=== PATIENT | female | born 1990 | race Caucasian/White ===

== ENCOUNTER 2018-01-10 06:28 | Inpatient (IN) | payer MEDICAID ==
[2018-01-10] MEDS: AMPICILLIN 1 GM/NS (PMX) 50 ML IV ×3 (01:00→21:15)
[2018-01-10] MEDS ORDERED: LIDOCAINE 1% (MPF) 30 ML INJ INJ (10:30)
[2018-01-10] MEDS ORDERED: OXYTOCIN 30 UNITS/LR 500 ML IV (10:30)
[2018-01-10] MEDS ORDERED: CARBOPROST 250 MCG INJ IM (10:30)
[2018-01-10] MEDS ORDERED: BUTORPHANOL 2 MG INJ IV (10:30)
[2018-01-10] MEDS ORDERED: IBUPROFEN 600 MG TAB PO (10:30)
[2018-01-10] MEDS: LACTATED RINGER'S 1,000 ML IV* ×4 (10:52→21:01)
[2018-01-10 10:55] LABS: ADD MAN DIFF? NO
[2018-01-10 10:57] LABS: BASOPHILS % 0.2 % (0.0-2.0); EOSINOPHILS # 0.4 10^3/ul (0.0-0.5); EOSINOPHILS % 3.6 % (0.0-7.0); HEMOGLOBIN 11.3 g/dl (12.0-16.0); LYMPHOCYTES # 1.7 10^3/ul (0.8-2.9); LYMPHOCYTES % 15.5 % (15.0-51.0); MEAN CORPUSCULAR HEMOGLOBIN 25.6 pg (29.0-33.0); MEAN CORPUSCULAR HGB CONC 32.3 g/dl (32.0-37.0); MEAN CORPUSCULAR VOLUME 79.2 fl (82.0-101.0); MONOCYTE # 0.4 10^3/ul (0.3-0.9); MONOCYTES % 3.9 % (0.0-11.0); NEUTROPHIL # 8.6 10^3/ul (1.6-7.5); NEUTROPHILS % 76.4 % (39.0-77.0); PLATELET COUNT 173 10^3/UL (140-415); RED BLOOD COUNT 4.42 10^6/ul (4.20-5.40); RED CELL DISTRIBUTION WIDTH 13.9 % (11.5-14.5)
[2018-01-10 10:57] LABS: WHITE BLOOD COUNT 11.2 10^3/ul (4.8-10.8)
[2018-01-10 12:02] LABS: HEPATITIS B SURFACE ANTIGEN NEGATIVE (NEGATIVE)
[2018-01-10 12:16] LABS: PARTIAL THROMBOPLASTIN TIME 29.8 Sec (25.0-35.0); PROTIME 12.2 Sec (11.9-14.9)
[2018-01-10] MEDS ORDERED: FENTAnyl 2MCG/ML-ROPIV 0.2% 100 ML (12:29)
[2018-01-10 12:46] LABS: HIV 1&2 ANTIBODY NEGATIVE (NEGATIVE)
[2018-01-10] MEDS: AMPICILLIN 2 GM/NS (PMX) 100 ML IV (12:47)
[2018-01-10 15:15] LABS: RAPID PLASMA REAGIN NONREACTIVE (NR)
[2018-01-10] MEDS: DEXTROSE 5%-LR 1,000 ML IV (15:32)
[2018-01-10] MEDS ORDERED: NALOXONE (0.4 MG/ML) INJ IV (16:00)
[2018-01-10] MEDS ORDERED: HYDROmorphONE 0.5 MG/0.5 ML SYG IV ×2 (16:00)
[2018-01-10] MEDS ORDERED: ONDANSETRON 4 MG INJ IV (16:00)
[2018-01-10] MEDS ORDERED: KETOROLAC 30 MG INJ IV (16:00)
[2018-01-10] MEDS ORDERED: DIPHENHYDRAMINE 50 MG INJ IV (16:00)
[2018-01-10] MEDS: OXYTOCIN 30 UNITS/LR 500 ML IV (20:20)
[2018-01-10] MEDS: FENTAnyl 2MCG/ML-ROPIV 0.2% 100 ML BAG EPI (21:24)
[2018-01-11] MEDS: AMPICILLIN 1 GM/NS (PMX) 50 ML IV ×2 (01:16→05:13)
[2018-01-11] MEDS: DEXTROSE 5%-LR 1,000 ML IV ×3 (04:17→15:35)
[2018-01-11] MEDS: FENTAnyl 2MCG/ML-ROPIV 0.2% 100 ML BAG EPI ×2 (06:21→15:29)
[2018-01-11] MEDS: MINERAL OIL 30ML CUP PO ×2 (07:30→19:05)
[2018-01-11] MEDS ORDERED: ZOLPIDEM 5 MG TAB PO ×2 (12:00→23:00)
[2018-01-11] MEDS ORDERED: ONDANSETRON 4 MG INJ IV (12:00)
[2018-01-11] MEDS ORDERED: NALOXONE (0.4 MG/ML) INJ IV (12:00)
[2018-01-11] MEDS ORDERED: HYDROmorphONE 0.5 MG/0.5 ML SYG IV ×2 (12:00)
[2018-01-11] MEDS ORDERED: DIPHENHYDRAMINE 50 MG INJ IV (12:00)
[2018-01-11] MEDS ORDERED: KETOROLAC 30 MG INJ IV (12:00)
[2018-01-11] MEDS: LACTATED RINGER'S 1,000 ML IV* (12:03)
[2018-01-11] MEDS: OXYTOCIN 30 UNITS/LR 500 ML IV ×3 (20:24→21:37)
[2018-01-11] MEDS: METHYLERGONOVINE 0.2 MG INJ IM (20:36)
[2018-01-11] MEDS: MISOPROSTOL 200 MCG TAB PR (20:48)
[2018-01-11] MEDS ORDERED: OXYCODONE/ASPIRIN (4.88/325) TAB PO ×2 (23:00)
[2018-01-11] MEDS ORDERED: MISOPROSTOL 200 MCG TAB PR (23:00)
[2018-01-11] MEDS ORDERED: METHYLERGONOVINE 0.2 MG INJ IM (23:00)
[2018-01-11] MEDS ORDERED: OXYTOCIN 30 UNITS/LR 500 ML IV (23:00)
[2018-01-11] MEDS ORDERED: CARBOPROST 250 MCG INJ IM (23:00)
[2018-01-12] MEDS: IBUPROFEN 600 MG TAB PO ×4 (00:49→18:20)
[2018-01-12] MEDS: WITCH HAZEL/GLYCERIN PAD PR (00:49)
[2018-01-12] MEDS: BENZOCAINE 20% 56 ML SPRAY TOP (00:49)
[2018-01-12] MEDS: LANOLIN 7 GM TUBE TOP (00:50)
[2018-01-12 09:25] LABS: ADD MAN DIFF? NO
[2018-01-12 09:27] LABS: BASOPHILS % 0.1 % (0.0-2.0); EOSINOPHILS # 0.3 10^3/ul (0.0-0.5); EOSINOPHILS % 2.3 % (0.0-7.0); HEMATOCRIT 24.6 % (37.0-47.0); HEMOGLOBIN 8.3 g/dl (12.0-16.0); LYMPHOCYTES # 1.8 10^3/ul (0.8-2.9); LYMPHOCYTES % 13.1 % (15.0-51.0); MEAN CORPUSCULAR HEMOGLOBIN 26.6 pg (29.0-33.0); MEAN CORPUSCULAR HGB CONC 33.7 g/dl (32.0-37.0); MEAN CORPUSCULAR VOLUME 78.8 fl (82.0-101.0); MEAN PLATELET VOLUME 12.9 fl (7.4-10.4); MONOCYTE # 0.9 10^3/ul (0.3-0.9); MONOCYTES % 6.2 % (0.0-11.0); NEUTROPHIL # 10.8 10^3/ul (1.6-7.5); NEUTROPHILS % 77.7 % (39.0-77.0); PLATELET COUNT 124 10^3/UL (140-415); RED BLOOD COUNT 3.12 10^6/ul (4.20-5.40); RED CELL DISTRIBUTION WIDTH 14.2 % (11.5-14.5)
[2018-01-12 09:27] LABS: WHITE BLOOD COUNT 13.9 10^3/ul (4.8-10.8)
[2018-01-12] MEDS: SENNA/DOCUSATE NA (8.6MG/50MG) TAB PO ×2 (12:23→20:32)
[2018-01-13] MEDS: IBUPROFEN 600 MG TAB PO ×3 (06:00→12:07)
[2018-01-13] MEDS: WITCH HAZEL/GLYCERIN PAD PR (06:12)
[2018-01-13] MEDS: SENNA/DOCUSATE NA (8.6MG/50MG) TAB PO (09:00)
[2018-01-13] MEDS: DIPHENHYDRAMINE 50 MG CAP PO (12:07)
[2018-01-13] MEDS: DIPHTH/TET/ACEL PERTUSS (ADULT) 0.5 ML VIAL IM* (14:34)
[2018-01-17 14:06] LABS: RUBELLA ANTIBODY - IGG 1.04 index; RUBELLA ANTIBODY - IGM <20.00 AU/mL
== END 2018-01-13 15:52 | disposition home or self-care (01) | DRG 775 ==
LOC: OBT 06:28 → PP1 01-11 22:10 → L-D 06:29 → OBT 10:21 → L-D 10:22
PROVIDERS: Obstetrics & Gynecology
PROC: 4A1HXCZ Monitoring of Products of Conception, Cardiac Rate, External Approach (ICD-10-PCS; 2018-01-10)
PROC: 10E0XZZ Delivery of Products of Conception, External Approach (ICD-10-PCS; principal; 2018-01-11)
PROC: 0DQR0ZZ Repair Anal Sphincter, Open Approach (ICD-10-PCS; 2018-01-11)
PROC: 3E0234Z Introduction of Serum, Toxoid and Vaccine into Muscle, Percutaneous Approach (ICD-10-PCS; 2018-01-13)
DX: O24.429 Gestational diabetes mellitus in childbirth, unspecified control (principal); O70.20 Third degree perineal laceration during delivery, unspecified; Z68.42 Body mass index [BMI] 45.0-49.9, adult; O62.2 Other uterine inertia; O99.214 Obesity complicating childbirth; E66.01 Morbid (severe) obesity due to excess calories; Z23 Encounter for immunization; Z37.0 Single live birth; Z3A.38 38 weeks gestation of pregnancy
CPT/HCPCS: 62319; 76815; 76818; 82962; 85025; 85610; 85730; 86592; 86703; 86762; 86850; 86900; 86901; 87340; 90715